=== PATIENT | male | born 1975 | race Caucasian/White ===

== ENCOUNTER 2020-12-28 14:55 | Inpatient (IN) ==
[2020-12-28] MEDS ORDERED: HYDROmorphone 0.5 MG/0.5 ML SYRINGE IV ONE (15:38)
[2020-12-28] MEDS ORDERED: Thiamine 100 MG/ML 2 ml VIAL (200 mg) IV ONE (16:50)
[2020-12-28] MEDS ORDERED: LORazepam 2 mg VIAL 1 ml IV PUSH SCH (17:00)
[2020-12-28] MEDS: NS 0.9% 1000 ml BAG 1,000 ML IV SCH (20:35)
[2020-12-28] MEDS: Pantoprazole VIAL 40 MG VIAL IV SCH (20:35)
[2020-12-28] MEDS: HYDROmorphone 1 MG/1 ML SYRINGE IV PRN (20:35)
[2020-12-28] MEDS: Enoxaparin 40 MG/0.4 ML SYR SUBCUT SCH (20:35)
[2020-12-28] MEDS ORDERED: Ondansetron 4 mg VIAL 2 MG/ML 2 ml VIAL IV PRN (20:57)
[2020-12-28] MEDS ORDERED: Lorazepam PYXIS KEY PRN (20:59)
[2020-12-28] MEDS ORDERED: Thiamine IV 100 MG in NS 0.9% 50 ML Q24H IV ONE (22:00)
[2020-12-29] MEDS: HYDROmorphone 1 MG/1 ML SYRINGE IV PRN ×10 (00:30→21:42)
[2020-12-29] MEDS: NS 0.9% 1000 ml BAG 1,000 ML IV SCH (03:35)
[2020-12-29 05:15] LABS: ABS Eosinophils 0.2 10^3/ul (0-0.6); ABS Monocytes 0.4 10^3/ul (0-0.8); ABS Neutrophils 8.7 10^3/ul (1.5-7.7); Eosinophil % 2.1 %; Hematocrit 45 % (42-52); Hemoglobin 15.6 g/dL (14.0-18.0); Lymphocyte % 9.5 %; Mean Corpuscular HGB Conc 35 g/dL (31-36); Mean Corpuscular Hemoglobin 37 pg (27-31); Mean Corpuscular Volume 107 fL (80-94); Mean Platelet Volume 7.5 fL (7.4-10.4); Platelet Count 191 10^3/uL (150-450); Red Blood Count 4.17 10^6 /uL (4.18-5.48); Red Cell Distribution Width 14 % (10-15); White Blood Count 10.3 10^3/uL (3.5-10.8)
[2020-12-29 05:23] LABS: Albumin 3.2 g/dL (3.2-5.2); Albumin/Globulin Ratio 1.2 (1-3); Calcium 8.5 mg/dL (8.6-10.3); Globulin 2.7 g/dL (2-4); Potassium 4.2 mmol/L (3.5-5.0); Total Bilirubin 0.8 mg/dL (0.2-1.0); Total Protein 5.9 g/dL (6.4-8.9)
[2020-12-29] MEDS: Nicotine PATCH 21 MG/24 HR PATCH TRANSDERM SCH (09:32)
[2020-12-29] MEDS: Pantoprazole VIAL 40 MG VIAL IV SCH (09:32)
[2020-12-29] MEDS: Enoxaparin 40 MG/0.4 ML SYR SUBCUT SCH (09:32)
[2020-12-29] MEDS: Thiamine IV 100 MG, Folic Acid IV 1 MG, Multiple Vitamin IV ADULT 10 ML in D5NS 0.9% 10... IVPB SCH (10:41)
[2020-12-29] MEDS: D5LR 1000 ml BAG 1,000 ML IV SCH ×2 (14:55→21:42)
[2020-12-29] MEDS: Acetaminophen IV 1 GM/100ML 100 ML IV PRN (20:02)
[2020-12-30] MEDS: HYDROmorphone 1 MG/1 ML SYRINGE IV PRN ×11 (00:13→23:27)
[2020-12-30] MEDS: Acetaminophen IV 1 GM/100ML 100 ML IV PRN ×2 (04:09→13:06)
[2020-12-30] MEDS: D5LR 1000 ml BAG 1,000 ML IV SCH (04:09)
[2020-12-30] MEDS ORDERED: diPHENhydraMINE IV 50 MG/ML 1 ml VIAL (BENADRYL) SLOW PUSH PRN (05:17)
[2020-12-30] MEDS: Nicotine PATCH 21 MG/24 HR PATCH TRANSDERM SCH (08:06)
[2020-12-30] MEDS: Thiamine IV 100 MG, Folic Acid IV 1 MG, Multiple Vitamin IV ADULT 10 ML in D5NS 0.9% 10... IVPB SCH (08:06)
[2020-12-30] MEDS: Enoxaparin 40 MG/0.4 ML SYR SUBCUT SCH (08:06)
[2020-12-30] MEDS: Pantoprazole VIAL 40 MG VIAL IV SCH (08:06)
[2020-12-30] MEDS ORDERED: D5LR 1000 ml BAG 1,000 ML IV SCH (08:33)
[2020-12-30 10:05] LABS: Hematocrit 44 % (42-52); Hemoglobin 15.1 g/dL (14.0-18.0); Mean Corpuscular HGB Conc 35 g/dL (31-36); Mean Corpuscular Hemoglobin 37 pg (27-31); Mean Corpuscular Volume 108 fL (80-94); Mean Platelet Volume 7.9 fL (7.4-10.4); Platelet Count 191 10^3/uL (150-450); Red Blood Count 4.06 10^6 /uL (4.18-5.48); Red Cell Distribution Width 14 % (10-15); White Blood Count 5.9 10^3/uL (3.5-10.8)
[2020-12-30 10:20] LABS: Albumin 3.2 g/dL (3.2-5.2); Albumin/Globulin Ratio 1.1 (1-3); Calcium 8.4 mg/dL (8.6-10.3); Globulin 2.9 g/dL (2-4); Magnesium 1.9 mg/dL (1.9-2.7); Potassium 3.8 mmol/L (3.5-5.0); Total Bilirubin 0.5 mg/dL (0.2-1.0); Total Protein 6.1 g/dL (6.4-8.9)
[2020-12-31 05:48] LABS: Calcium 8.8 mg/dL (8.6-10.3)
[2020-12-31] MEDS ORDERED: HYDROmorphone 1 MG/1 ML SYRINGE IV PRN (07:24)
[2020-12-31] MEDS ORDERED: oxyCODONE/Acetamin 5/325 mg TAB PO PRN (07:25)
[2020-12-31] MEDS: Thiamine IV 100 MG, Folic Acid IV 1 MG, Multiple Vitamin IV ADULT 10 ML in D5NS 0.9% 10... IVPB SCH (09:49)
[2020-12-31] MEDS: Nicotine PATCH 21 MG/24 HR PATCH TRANSDERM SCH (09:50)
[2020-12-31] MEDS: Pantoprazole VIAL 40 MG VIAL IV SCH (09:50)
[2020-12-31] MEDS: Enoxaparin 40 MG/0.4 ML SYR SUBCUT SCH (09:51)
[2021-01-01] MEDS: Nicotine PATCH 21 MG/24 HR PATCH TRANSDERM SCH (08:23)
[2021-01-01] MEDS: Enoxaparin 40 MG/0.4 ML SYR SUBCUT SCH (08:23)
[2021-01-01] MEDS: Pantoprazole VIAL 40 MG VIAL IV SCH (08:24)
[2021-01-01 10:32] VITALS: BP 111/67
== END 2021-01-01 12:00 | disposition home or self-care (01) | DRG 282 ==
LOC: ED 14:55 → MED 18:21
PROVIDERS: ADMIT Internal Medicine; ATTEND Internal Medicine